=== PATIENT | female | born 1990 | race Caucasian/White ===

== ENCOUNTER 2023-11-02 13:45 | Emergency (ER) | payer OTHER, SELFPAY ==
[2023-11-02 13:47] VITALS: BP 141/96
[2023-11-02 14:37] VITALS: BP 116/77
[2023-11-02 15:01] VITALS: BP 124/83
--- NOTE | 2023-11-02 15:05 | ED.GENMED ---
History of Present Illness
<Debbie Medina PA-C - Last Filed: 11/02/23 18:58>
General
Chief Complaint: Cold/Flu/URI Symptoms
Source: patient
Exam Limitations: none
Time Seen by Provider: 11/02/23 14:50
Nursing documentation reviewed up to this point in time: agreed with
Travel History
Have you had any contact with someone who has COVID-19?: Yes
Comment: self
Do you have any symptoms of coronavirus? Fever > 100 degrees, chills, cough, shortness of breath, sore throat, loss of taste or smell, muscle aches, or headache?: Yes
Symptoms:: cough
History of Present Illness
History of Present Illness:
Patient is a 33 year old female with no significant medical history presenting for evaluation of shortness or breath and cough in the setting of known COVID-19 infection. Patient states that she started feeling unwell on Wednesday with a sore throat,
headache, vomiting, and then tested positive for COVID on Wednesday. Initial symptoms of seem to mainly improve but she states that she developed a productive cough with green sputum and shortness of breath over the past few days. She also endorsed
mild dizziness/lightheadedness. Shortness of breath is present both at rest and with exertion. No fever, chills, lower leg pain, chest pain. Patient has had COVID many years ago but does not remember feeling short of breath. Patient reports
frequent history of pneumonia.
Patient does report starting her menstrual period today.
Patient smokes nicotine Vapes daily. Patient denies any recent travel or surgeries. Denies any personal or family history of blood clots.
Phy Exam
<Debbie Medina PA-C - Last Filed: 11/02/23 18:58>
Physical Exam
Physical Exam:
General: In no apparent distress, non-toxic appearing
HEENT: Atraumatic, normocephalic; posterior pharynx very mildly erythematous without any tonsillar edema or exudates, protecting airway
Neck: appears supple, no meningeal signs
CV: Regular rate and rhythm, heart sounds normal, no evidence of cyanosis
Resp: Lungs clear bilaterally without any wheezing, rales, rhonchi, no evidence of respiratory distress, O2 saturation 98 on room air
Abd: Soft, nontender, non-distended
Extremities: No deformities, no evidence of cyanosis or edema; DP pulses palpable and equal bilaterally
Neuro: alert and oriented x 3; grossly intact
Psych: Normal affect
Skin: Intact, no rashes
Scores
<Debbie Medina PA-C - Last Filed: 11/02/23 18:58>
PERC Rule Criteria
Age <50 years: Yes
HR <100 bpm: Yes
Room air oxygen sat >94%: Yes
History of DVT or PE: No
Recent trauma or surgery: No
Hemoptysis: No
Exogenous estrogen: No
Clinical signs suggestive of DVT: No
: No
Considered low risk for PE: Yes
PERC Score: 0
PE can be excluded by PERC: Yes
Course
<Debbie Medina PA-C - Last Filed: 11/02/23 18:58>
Orders/Labs/Results
Orders:
Orders
11/02/23 15:19
Electrocardiogram (*1) Urgent
Reason for Study: Shortness of Breath
EKG- Treatment ONCE
Test Result ONCE
11/02/23 15:42
Complete Blood Count/With Diff Urgent
Comprehensive Metabolic Panel Urgent
D-Dimer Urgent
HCG, Serum Qualitative Screen Urgent
11/02/23 16:14
CT Chest Pe Study Urgent
Comment:
Reason For Exam: shortness of breath, elevated dimer, covid +
Abnormal Lab Results
11/02/23
15:42
MPV 12.1 H fL
(7.4-10.4)
Absolute Monos (auto) 0.7 H 10^3/uL
(0.1-0.6)
Lymphocytes % 19.8 L %
(20.5-51.1)
Monocytes % 10.1 H %
(1.7-9.3)
D-Dimer 1.03 H ug/mlFEU
(0.00-0.50)
11/02/23 15:42
11/02/23 15:42
Vital Signs
Initial and Last Documented VS:
Initial Vital Signs
Temp Pulse Resp BP Pulse Ox
98.3 F 60 20 141/96 98
11/02/23 13:47 11/02/23 13:47 11/02/23 13:47 11/02/23 13:47 11/02/23 13:47
Last Documented Vital Signs
Temp Pulse Resp BP Pulse Ox
98.3 F 60 17 106/72 98
11/02/23 13:47 11/02/23 18:30 11/02/23 18:30 11/02/23 18:04 11/02/23 18:30
<Tez Henriquez MD - Last Filed: 11/02/23 15:32>
Orders/Labs/Results
Orders:
Orders
11/02/23 15:19
Electrocardiogram (*1) Urgent
Reason for Study: Shortness of Breath
EKG- Treatment ONCE
Test Result ONCE
11/02/23 15:42
Complete Blood Count/With Diff Urgent
Comprehensive Metabolic Panel Urgent
D-Dimer Urgent
HCG, Serum Qualitative Screen Urgent
11/02/23 16:14
CT Chest Pe Study Urgent
Comment:
Reason For Exam: shortness of breath, elevated dimer, covid +
Abnormal Lab Results
11/02/23
15:42
MPV 12.1 H fL
(7.4-10.4)
Absolute Monos (auto) 0.7 H 10^3/uL
(0.1-0.6)
Lymphocytes % 19.8 L %
(20.5-51.1)
Monocytes % 10.1 H %
(1.7-9.3)
D-Dimer 1.03 H ug/mlFEU
(0.00-0.50)
11/02/23 15:42
11/02/23 15:42
Vital Signs
Initial and Last Documented VS:
Initial Vital Signs
Temp Pulse Resp BP Pulse Ox
98.3 F 60 20 141/96 98
11/02/23 13:47 11/02/23 13:47 11/02/23 13:47 11/02/23 13:47 11/02/23 13:47
Last Documented Vital Signs
Temp Pulse Resp BP Pulse Ox
98.3 F 60 17 106/72 98
11/02/23 13:47 11/02/23 18:30 11/02/23 18:30 11/02/23 18:04 11/02/23 18:30
<Debbie Medina PA-C - Last Filed: 11/02/23 18:58>
MDM/Problems Addressed
Differential Diagnosis Includes:
Viral illness, bronchitis, pneumonia, anemia, electrolyte abnormalities, arrhythmia, PE
MDM/Problems Addressed:
Patient is 33-year-old female with no significant past medical history presenting for evaluation of shortness of breath and a cough in the setting of known COVID infection. Patient also reporting mild dizziness. No recent fever, chills. She is
not hypoxic, vital signs stable on arrival. She is afebrile. Physical exam as documented above. She is in no apparent distress on my initial examination. Her lungs are clear without any rales, rhonchi, wheezing. She does not appear to be in any
respiratory distress. Given shortness of breath and dizziness�will check basic labs, . Will do chest x-ray. Given clear lung sounds in the setting of shortness of breath and known COVID�will check D-dimer, although suspicion for PE is
very low.
CBC without any clinically significant abnormalities. CMP all within normal limits negative. Her D-dimer was found to be elevated at 1.03�will get CTA chest instead of chest x-ray.
Into reassess patient�she remains in no apparent respiratory distress. Her oxygen saturation is [address] pending.
CT shows no evidence of pulmonary embolism or other acute abnormality. Her vitals have remained stable. She is fit for discharge with return precautions, supportive care. She will follow-up with her primary care provider next week to ensure
symptoms are improving. Patient comfortable with this plan. All questions answered.
Chronic conditions affecting care:
N/A
Acute Exacerbation and/or Progression of Chronic Illness:
N/A
<Debbie Medina PA-C - Last Filed: 11/02/23 18:58>
*Radiology
Radiology exam reviewed: radiology read reviewed
*Pulse Oximetry
Patient hypoxic: no
*EKG
Interpreted by ED Provider?: Yes
EKG Intrepretation Date: 11/02/23
Interpretation: abnormal
Comparison EKG: no comparison EKG present
Heart Rate: 57
Rate: bradycardiac
Rhythm: sinus
[place]: normal axis
Interval: normal interval
QRS Pattern: normal QRS
Ischemia: no ischemia
*Cam Milling Machine Operator Interpretation
Rate: bradycardiac
Interpretation: normal
Heart Rate: 58
Rhythm: sinus
*Critical Care Note
Total Time (30-74mins, 75-104mins- exclusive of procedures): Not Applicable
ED Attending Note
<Debbie Medina PA-C - Last Filed: 11/02/23 18:58>
-
Portions of this chart may have been created with voice recognition software.� Occasional wrong word or��sound alike� substitutions may have occurred due to the inherent limitations of voice recognition software.
<Tez Henriquez MD - Last Filed: 11/02/23 15:32>
ED Attending Note
Patient seen and examined by attending physician: Yes
I performed the substantive portion of visit, reviewed & personally made and approve the management plan that is documented in note by myself or EMILY.: Yes
ED Attending Note:
33-year-old female started with COVID-like symptoms 5 days ago. Congestion some loss of taste myalgias. Minimal cough. No pleuritic chest pain. Some shortness of breath that started yesterday. [place] different than her previous COVID. No other
complaints or issues.
On exam patient is nontoxic in no distress. Stable vital signs. Good pulse ox. Normal heart rate. Lungs are clear and equal. Regular rate and rhythm no murmur. Warm and dry. No leg swelling. No cord. Grossly nonfocal.
Likely all related to COVID. However with clear lungs no significant cough or congestion we will do a D-dimer to screen for PE. Chest x-ray and basic labs. Do not feel she warrants Paxlovid given she is at the 5-day course and is very healthy.
This was discussed with the patient.
Discharge Plan
Departure
Patient Disposition: Home (Routine Discharge)
Date of Disposition: 11/02/23
Time of Disposition: 18:34
Patient with high blood pressure during this ER visit?: No
Condition: Good
Covid-19: Confirmed COVID-19
Discharge Problem:
COVID-19
Instructions: COVID-19 (DC)
Referrals:
Manuela Morton MD [Family Provider] - Follow up in 1 week
Activity Restrictions/Additional Instructions:
- Return to the emergency department with any high fevers, chest pain, shortness of breath/difficulty breathing, persistent dizziness/lightheadedness, severe headache or neck pain, worsening current symptoms, or any other concerns
-It is important to stay well-hydrated
-You can take Motrin/Tylenol as needed for discomfort
-Follow-up with primary care within a week to ensure symptoms are improving
Interventions
Interventions:
*Risk Screen - Suicide Last Done: 11/02/23 15:36
*General Assessment Last Done: 11/02/23 15:36
*Neglect/Abuse Screening Last Done: 11/02/23 15:36
ED- Fall Risk Assessment Last Done: 11/02/23 18:49
*ED COVID-19 Vaccine History Last Done: 11/02/23 15:36
*Nursing Disposition Last Done: 11/02/23 18:49
ED- Pulmonary Assessment Last Done: 11/02/23 15:35
Discharge Date and Time
Discharge Date/Time: 11/02/23 18:49
[2023-11-02 16:00] VITALS: BP 107/78
[2023-11-02 16:00] LABS: % Basophils 0.4 % (0-2); % Eosinophils 0.1 % (0-6); % Immature Granulocytes 0.1 % (0-0.5); % Lymphocytes 19.8 % (20.5-51.1); % Monocytes 10.1 % (1.7-9.3); % Neutrophils 69.5 % (42.2-75.2); Absolute Lymphocytes 1.4 10^3/uL (1.2-3.4); Absolute Monocytes 0.7 10^3/uL (0.1-0.6); Absolute Neutrophils 4.7 10^3/uL (1.4-6.5); Hematocrit 37.7 % (37.0-47.0); Hemoglobin 13.1 g/dL (12.0-16.0); Mean Corp Hgb Conc. 34.7 g/dL (33.0-37.0); Mean Corpuscular Volume 83.6 fL (81.0-99.0); Mean Platelet Volume 12.1 fL (7.4-10.4); Nucleated Red Blood Cells % 0 %; Platelet Count 224 10^3/uL (130-400); Red Blood Cell Count 4.51 10^6/uL (4.20-5.40); White Blood Cell Count 6.8 10^3/uL (4.8-10.8)
[2023-11-02 16:08] LABS: D-Dimer 1.03 ug/mlFEU (0.00-0.50)
[2023-11-02 16:23] LABS: HCG, Serum Qualitative Screen Negative
[2023-11-02 16:29] LABS: ALT (SGPT) < 10 U/L (0-35); AST (SGOT) 24 U/L (14-36); Albumin 4.4 g/dl (3.5-5.0); Alkaline Phosphatase 42 U/L (38-126); Blood Urea Nitrogen 13 mg/dl (7-17); Calcium 9.3 mg/dl (8.4-10.2); Carbon Dioxide 25 mmol/L (22-30); Chloride 103 mmol/L (98-107); Glucose 79 mg/dl (70-99); Potassium 4.1 mmol/L (3.5-5.1); Sodium 136 mmol/L (135-145); Total Bilirubin 0.5 mg/dl (0.2-1.3); Total Protein 7.4 g/dl (6.3-8.2); eGFR > 60.00
[2023-11-02 17:00] VITALS: BP 103/67
[2023-11-02 18:04] VITALS: BP 106/72
== END 2023-11-02 18:49 | disposition home or self-care (01) ==
LOC: EMR 13:45
PROVIDERS: Physician Assistant; EMERGENCY PHYSICIAN Emergency Medicine
DX: U07.1 COVID-19 (principal); F17.290 Nicotine dependence, other tobacco product, uncomplicated; R79.89 Other specified abnormal findings of blood chemistry
CPT/HCPCS: 99285; 71275; 80053; 84703; 85025; 85379; 93005; Q9967

== ENCOUNTER 2025-02-09 11:32 | Emergency (ER) | payer OTHER, SELFPAY ==
[2025-02-09 11:33] VITALS: BP 147/96
[2025-02-09 11:56] LABS: Hematocrit 41.9 % (37.0-47.0); Hemoglobin 14.7 g/dL (12.0-16.0); Mean Corp Hgb Conc. 35.1 g/dL (33.0-37.0); Mean Corpuscular Volume 83.3 fL (81.0-99.0); Nucleated Red Blood Cells % 0 %; Platelet Count 331 10^3/uL (130-400); Red Cell Dist. Width 12.0 % (11.5-14.5)
[2025-02-09 12:17] LABS: ALT (SGPT) 12 U/L (0-35); AST (SGOT) 24 U/L (14-36); Albumin 5.3 g/dl (3.5-5.0); Alkaline Phosphatase 53 U/L (38-126); Blood Urea Nitrogen 14 mg/dl (7-17); Calcium 9.9 mg/dl (8.4-10.2); Carbon Dioxide 22 mmol/L (22-30); Chloride 104 mmol/L (98-107); Glucose 106 mg/dl (70-99); Lipase 93 U/L (23-300); Potassium 4.2 mmol/L (3.5-5.1); Sodium 138 mmol/L (135-145); Total Protein 8.7 g/dl (6.3-8.2); eGFR > 60.00
[2025-02-09 12:19] LABS: HCG, Serum Qualitative Screen Negative
--- NOTE | 2025-02-09 12:36 | ED.GENMED ---
History of Present Illness
General
Chief Complaint: Abdominal Symptoms
Time Seen by Provider: 02/09/25 12:36
History of Present Illness
History of Present Illness:
TIME OF INITIAL EVALUATION
- 12:40 PM
REVIEW OF OLD RECORDS
- I reviewed records of the patient was seen in the emergency department in 2022 related to breast pain (history of breast implants in 2013 and
Note:
CHIEF COMPLAINT(S)
Nausea, vomiting, and headaches.
HISTORY OF PRESENT ILLNESS
The patient is a 34-year-old female who presents with a history of waking each morning for the past couple of months with significant nausea and vomiting. The vomiting is described as non-bilious and non-food containing, often yellow in color,
occurring every morning and subsiding after approximately one hour. Recently, over the past week, this symptom has persisted without subsiding.
Additionally, for the past six months, the patient has experienced severe headaches, which she describes as debilitating, sometimes requiring her to remain bedridden for an entire day. These headaches are associated with nausea, vomiting, and
sensitivity to light and sound, suggesting a migraine-like syndrome. However, she has not been formally diagnosed with migraines in the past.
There is no history of gastrointestinal evaluation, such as endoscopy, or consultations with a canopy inspector or primary care physician regarding these symptoms.
The patient reports making lifestyle changes, such as eliminating caffeine, with no improvement.
The patient also notes episodes of becoming alternately hot and sweaty, then cold, along with dizziness and a disrupted equilibrium.
Upon evaluation today, her white blood cell count was elevated, and there was a slight elevation in total bilirubin, though other laboratory findings were unremarkable.
The patient reports tenderness in the abdominal area, but no significant pain at the time of the assessment.
PHYSICAL EXAM
- General: Well appearing in no distress
- HEENT: Moist oral mucosa, earlobe expanders noted
- Cardiovascular: No murmurs, normal heart rate, regular rhythm, No chest wall tenderness
- Pulmonary: No respiratory distress, breath sounds are clear and equal
- Abdomen: Mild lower abdominal tenderness
- Neurologic: Excellent strength all extremities, no coordination deficits
- Psychiatric: Appropriate mental status, normal insight and judgement
- Extremities: Nontender, no edema, moves all extremities equally
- Skin: Heavily tattooed
PLAN
1. Order a non-contrast CT of the head to evaluate for intracranial causes of headache.
2. Order a CT scan of the abdomen to evaluate gastrointestinal causes of nausea and vomiting.
3. Administer Reglan (metoclopramide) for nausea management, with Benadryl to prevent extrapyramidal symptoms.
4. Administer Toradol (ketorolac) for headache management.
5. Hydration with intravenous fluids.
6. Consider additional tests, such as a thyroid-stimulating hormone (TSH) level, to assess potential underlying metabolic causes.
7. Monitor response to treatments and discuss results of imaging and tests once available.
DIFFERENTIAL DIAGNOSIS
The Differential Diagnosis includes, in no particular order and is not limited to:
1. Migraine headaches
2. Gastroenteritis
3. Vestibular dysfunction
4. Gastritis or peptic ulcer disease
5. Hepatic dysfunction
6. Labyrinthitis
7. Thyroid dysfunction
8. Secondary headache disorder
9. Medication overuse headache
10. Infection or inflammation leading to elevated white blood cell count
RADIOLOGY
- CT head and CT abdomen pelvis obtained. CT head shows no acute abnormality. CT abdomen pelvis shows no acute abnormality, liver hemangiomas suspected.
EKG
-
LABS
- White count 8.1, hemoglobin 14.7, total bili 1.7 however the alk phos and transaminases are normal. Lipase is normal, hCG negative. TSH normal.
UPDATE
-SUMMARY OF ENCOUNTER
The patient, a 34-year-old female, was seen in the emergency department with symptoms of significant nausea, vomiting, and debilitating headaches, suspected to be due to a complex migraine syndrome. The patient reported significant improvement in
symptoms following administration of medication. A family history of migraines was noted, with the patients mother experiencing similar symptoms at a comparable age.
EMERGENCY TREATMENTS ADMINISTERED
Metoclopramide was given in the emergency department to manage nausea.
PLAN
The patient was advised to follow up with her primary care physician for further evaluation and management of her symptoms. [id number] ibuprofen, at prescription strength, was recommended every eight hours for headache management. Ondansetron
will be prescribed for managing nausea at home, as metoclopramide is not recommended for long-term use due to potential neurological side effects.
INDEPENDENT REVIEW OF LABS AND INTERPRETATION OF TESTS
My independent review indicates an elevated white blood cell count and a slight elevation in total bilirubin from previous laboratory results.
PATIENT EDUCATION AND COUNSELING
The patient was educated on identifying and managing symptoms of migraines, the potential long-term effects of metoclopramide, and the use of ibuprofen and ondansetron for symptom management. She was informed about the familial tendency of migraines
and the typical age-related pattern.
FOLLOW-UP INSTRUCTIONS
The patient was instructed to schedule a follow-up visit with her primary care physician to further explore the cause of her symptoms and manage them appropriately.
MEDICATION RECONCILIATION
- Ibuprofen: Advised [id number]-[id number] at prescription strength, every eight hours as needed.
- Ondansetron: Prescribed for nausea management.
MEDICAL DECISION MAKING
- Number and Complexity of Problems Addressed:
Chronic conditions affecting care include suspected migraine headaches. Differential Diagnosis includes migraine headaches, gastroenteritis, vestibular dysfunction, gastritis or peptic ulcer disease, hepatic dysfunction, labyrinthitis, thyroid
dysfunction, secondary headache disorder, medication overuse headache, infection or inflammation leading to elevated white blood cell count.
- Data:
Category 1
My independent review of laboratory data indicates an elevated white blood cell count and a slight elevation in total bilirubin.
- Risk:
Prescription medication was prescribed: Ondansetron for nausea.
DIAGNOSIS
1. Migraine, unspecified, G43.909
2. Nausea with vomiting, R11.2
Phy Exam
Physical Exam
Physical Exam:
See HPI
Course
Orders/Labs/Results
Orders:
Orders
02/09/25 11:35
IV Insert/Care/Rem.- Treatment PRN
Test Result ONCE
02/09/25 11:43
Complete Blood Count/With Diff Urgent
Comprehensive Metabolic Panel Urgent
HCG, Serum Qualitative Screen Urgent
Comment: Notify provider if positive test present
Lipase Urgent
TSH Reflex To Free T4 Urgent
Comment: ADD ON
02/09/25 12:45
Add On- LAB Urgent
Tests Added?: tsh reflex fT4
CT Head W/o Iv Contrast Urgent
Comment:
Reason For Exam: new SHAW's w/ nausea and dysequilibrium
0.9% Sodium Chloride 1000 ml [Nss] 1,000 ml IV BOLUS
Diphenhydramine [Benadryl] 25 mg IV NOW STA
Ketorolac [Toradol] 15 mg IV NOW STA
Metoclopramide [Reglan] 10 mg IV NOW STA
02/09/25 12:46
CT Abd/pelvis W Iv Cont Urgent
Comment:
Reason For Exam: abd pain, N/V, leukocytosis
Abnormal Lab Results
02/09/25
11:43
WBC 18.1 H 10^3/uL
(4.8-10.8)
MPV 11.5 H fL
(7.4-10.4)
Abs Immat Gran (auto) 0.1 H 10^3/uL
(0-0.05)
Absolute Neuts (auto) 15.0 H 10^3/uL
(1.4-6.5)
Absolute Monos (auto) 1.1 H 10^3/uL
(0.1-0.6)
Neutrophils % 83.4 H %
(42.2-75.2)
Lymphocytes % 9.8 L %
(20.5-51.1)
Glucose 106 H mg/dl
(70-99)
Total Bilirubin 1.7 H mg/dl
(0.2-1.3)
Total Protein 8.7 H g/dl
(6.3-8.2)
Albumin 5.3 H g/dl
(3.5-5.0)
02/09/25 11:43
02/09/25 11:43
Vital Signs
Initial and Last Documented VS:
Initial Vital Signs
Temp Pulse Resp BP Pulse Ox
36.7 C 115 18 147/96 96
02/09/25 11:33 02/09/25 11:33 02/09/25 11:33 02/09/25 11:33 02/09/25 11:33
Last Documented Vital Signs
Temp Pulse Resp BP Pulse Ox
36.7 C 62 18 116/67 99
02/09/25 11:33 02/09/25 13:43 02/09/25 11:33 02/09/25 13:43 02/09/25 13:43
*Pulse Oximetry
SaO2: 96
Oxygen Mode of Delivery: Room air
Patient hypoxic: no
*Critical Care Note
Total Time (30-74mins, 75-104mins- exclusive of procedures): Not Applicable
ED Attending Note
-
Portions of this chart may have been created with voice recognition software.� Occasional wrong word or��sound alike� substitutions may have occurred due to the inherent limitations of voice recognition software.
Discharge Plan
Departure
Patient Disposition: Home (Routine Discharge)
Date of Disposition: 02/09/25
Time of Disposition: 15:38
Patient with high blood pressure during this ER visit?: Yes
Discharge Problem:
Migraine
Instructions: Nausea and Vomiting, Adult (DC), Migraine in adults, BLOOD PRESSURE
Prescriptions:
New
ondansetron HCl 4 mg tablet
4 mg PO Q8H PRN (Reason: nausea and vomiting) Qty: 15 0RF
Referrals:
[facility] HUGHES [Other]
Activity Restrictions/Additional Instructions:
I recommend 3-4 kqsq-gni-fwgemxq ibuprofen (Motrin) every 8 hours with food for a few days. Return here if worse. CAT scan of the brain showed no abnormality. CAT scan of the abdomen pelvis showed no concerning abnormality. Incidentally noted
are what appear to be some liver hemangiomas which are common and benign. This has nothing to do with any of your symptoms. Follow-up with your primary care doctor. I am sending a prescription for Zofran to your pharmacy.
Interventions
Interventions:
*Risk Screen - Suicide Last Done: 02/09/25 11:33
*General Assessment Last Done: 02/09/25 12:58
*Neglect/Abuse Screening Last Done: 02/09/25 11:33
*ED- Fall Risk Assessment Last Done: 02/09/25 12:58
*ED COVID-19 Vaccine History Last Done: 02/09/25 12:58
BX-Lyxpxf-Fawlxufbds Assessment Last Done: 02/09/25 15:04
Discharge Date and Time
Print Language: FRENCH
[2025-02-09] MEDS: NSS 1000 IV (12:53)
[2025-02-09] MEDS: REGLAN 10 MG IV (12:54)
[2025-02-09] MEDS: TORADOL 15 MG IV (12:54)
[2025-02-09] MEDS: BENADRYL 25 MG IV (12:54)
[2025-02-09 13:43] VITALS: BP 116/67
[2025-02-09 15:59] VITALS: BP 116/66
== END 2025-02-09 16:10 | disposition home or self-care (01) ==
LOC: EMR 11:32
PROVIDERS: Emergency Medicine; EMERGENCY PHYSICIAN Emergency Medicine
DX: G43.909 Migraine, unspecified, not intractable, without status migrainosus (principal)
CPT/HCPCS: 99284; 96374; 96375; 96361; 70450; 74177; 80053; 83690; 84443; 84703; 85025; Q9967